=== PATIENT | female | born 1955 | race African-American/Black ===

== ENCOUNTER 2021-09-24 18:30 | Outpatient (CLI) | payer BC | END 2021-09-24 18:31 | disposition home or self-care (01) | LOC: SLEEPLAB 18:30 | PROVIDERS: ATTEND Internal Medicine | DX: G47.33 Obstructive sleep apnea (adult) (pediatric) (principal); G47.9 Sleep disorder, unspecified; R53.83 Other fatigue; R06.83 Snoring; I10 Essential (primary) hypertension; R73.03 Prediabetes; K21.9 Gastro-esophageal reflux disease without esophagitis; G47.00 Insomnia, unspecified; R09.02 Hypoxemia | CPT/HCPCS: 95806 ==

== ENCOUNTER 2021-11-22 19:00 | Outpatient (CLI) | payer BC | END 2021-11-22 19:01 | disposition home or self-care (01) | LOC: SLEEPLAB 19:00 | PROVIDERS: ATTEND Internal Medicine | DX: G47.33 Obstructive sleep apnea (adult) (pediatric) (principal); G47.9 Sleep disorder, unspecified; R53.82 Chronic fatigue, unspecified; R06.83 Snoring; I10 Essential (primary) hypertension; R73.03 Prediabetes; G47.10 Hypersomnia, unspecified; R09.02 Hypoxemia; E66.9 Obesity, unspecified; Z68.30 Body mass index [BMI] 30.0-30.9, adult | CPT/HCPCS: 95811 ==

== ENCOUNTER 2022-05-19 15:41 | Outpatient (CLI) | payer BC, OTHER | END 2022-05-19 15:42 | disposition home or self-care (01) | LOC: DTY/OP 15:41 | PROVIDERS: ATTEND Internal Medicine | DX: I10 Essential (primary) hypertension (principal); E66.9 Obesity, unspecified; R73.03 Prediabetes | CPT/HCPCS: 97802 ==